=== PATIENT | female | born 1935 | race Caucasian/White ===

== ENCOUNTER 2016-11-07 16:14 | Emergency (ER) | payer MEDICARE, BC ==
[2016-11-07 16:41] VITALS: BP 119/49
--- NOTE | 2016-11-07 17:01 | ED ---
GI/ HPI - HPI Summary HPI Summary: 80 yr old female with the complaint of suprapubic discomfort, dysuria. The patient states she had onset of these symptoms yesterday. Denies NVD. She has had prior UTI before and felt just like this in the past. - History of Current Complaint Chief Complaint: [facility] Time Seen by Provider: 11/07/16 16:39 Stated Complaint: URINARY - Allergy/Home Medications Allergies/Adverse Reactions: Allergies Allergy/AdvReac Type Severity Reaction Status Date / Time Penicillins Allergy Hives Verified 11/07/16 16:35 Home Medications: Home Medications Aspirin EC Low Dose* [Ecotrin EC Low Dose 81 MG*] 81 mg PO QAM 11/07/16 [ History Confirmed 11/07/16] Carvedilol TAB* [Coreg TAB*] 6.25 mg PO BID 11/07/16 [History Confirmed 11/07/16 ] Cyanocobalamin TAB* [Vitamin B12 TAB*] 500 mcg PO QAM 11/07/16 [History Confirmed 11/07/16] Digoxin TAB* [Lanoxin TAB*] 0.25 mg PO QPM 11/07/16 [History Confirmed 11/07/16] Losartan TAB* [Cozaar TAB*] 25 mg PO BEDTIME 11/07/16 [History Confirmed ] Multivitamins/Minerals TAB* [Thera M Plus TAB*] 1 tab PO QAM 11/07/16 [History Confirmed 11/07/16] Omeprazole CAP* [Prilosec CAP* 20 MG] 20 mg PO QAM 11/07/16 [History Confirmed 11/07/16] Phenazopyridine HCl [Azo Standard Maximum Stre] 195 mg PO TID PRN 11/07/16 [ History Confirmed 11/07/16] Potassium Chlor TAB* [Klor Con ER TAB*] 10 meq PO QAM 11/07/16 [History Confirmed 11/07/16] Probiotic Product [Probiotic] 1 tab PO QAM 11/07/16 [History Confirmed 11/07/16] Simvastatin TAB(NF) [Zocor(NF)] 20 mg PO BEDTIME 11/07/16 [History Confirmed ] Spironolactone TAB* [Aldactone TAB*] 25 mg PO QPM 11/07/16 [History Confirmed 07 /18/17] PMH/Surg Hx/FS Hx/Imm Hx Previously Healthy: Yes Cardiovascular History: Reports: Hx Hypertension History: Reports: Other Problems/Disorders - utis - Surgical History Surgery Procedure, Year, and Place: [facility], [facility], [place] Infectious Disease History: No Infectious Disease History: Denies: Traveled Outside the [place] in Last 30 Days - Social History Alcohol Use: Occasionally Substance Use Type: Reports: None Smoking Status (MU): Never Smoked Tobacco Review of Systems Constitutional: Negative Positive: dysuria, frequency All Other Systems Reviewed And Are Negative: Yes Physical Exam Triage Information Reviewed: Yes Vital Signs On Initial Exam: Initial Vitals Temp Pulse Resp BP Pulse Ox 98.1 F 62 16 119/49 100 11/07/16 16:28 11/07/16 16:28 11/07/16 16:28 11/07/16 16:28 11/07/16 16:28 Vital Signs Reviewed: Yes Appearance: Positive: Well-Appearing, No Pain Distress Skin: Positive: Warm Head/Face: Positive: Normal Head/Face Inspection Eyes: Positive: EOMI ENT: Positive: Normal ENT inspection Neck: Positive: Supple, Nontender Respiratory/Lung Sounds: Positive: Clear to Auscultation, Breath Sounds Present Cardiovascular: Positive: RRR Abdomen Description: Positive: Nontender Musculoskeletal: Positive: Normal, Strength/ROM Intact Neurological: Positive: Normal, Sensory/Motor Intact, Alert, Oriented to Person Place, Time, CN Intact II-III Psychiatric: Positive: Normal Diagnostics - Vital Signs Vital Signs Temp Pulse Resp BP Pulse Ox 11/07/16 16:28 98.1 F 62 16 119/49 100 - Laboratory Lab Statement: Any lab studies that have been ordered have been reviewed, and results considered in the medical decision making process. GIGU Course/Dx - Course Course Of Treatment: 80 yr old female who took pyridium. We have sent UA/CS on her. Will cover her with cipro for her symptoms. DC home. FU PMD - Diagnoses Provider Diagnoses: UTI (urinary tract infection) Discharge - Discharge Plan Condition: Good Disposition: HOME Prescriptions: Nitrofurantoin Monohyd Macro [Macrobid] 100 mg PO BID #14 cap Patient Education Materials: Urinary Tract Infection in Women (ED)
[2016-11-07 19:53] LABS: Urine Bacteria 1+ (Absent); Urine Bilirubin Negative (Negative); Urine Glucose Negative (Negative); Urine Nitrite Positive (Negative)
== END 2016-11-07 17:12 | disposition home or self-care (01) ==
LOC: UCCORT 16:14
DX: N39.0 Urinary tract infection, site not specified (principal); I10 Essential (primary) hypertension; Z79.82 Long term (current) use of aspirin
CPT/HCPCS: 81003; 81015; 87077; 87086; 87186; 99202; G0463